=== PATIENT | male | born 1945 | race Caucasian/White ===

== ENCOUNTER → 2017-08-02 06:48 | Outpatient (CLI) | payer MEDICARE, BC, SELFPAY ==
--- NOTE | 2017-08-02 06:50 | NM_ITS ---
History and Indications: History of MS, hypertension, diabetes, tobacco use, family history. Procedure: Patient received 0.4 mg of Lexiscan, resting heart rate was 59 beats per, resting blood pressure 130/67, with Lexiscan maximum heart rate achieved was 74 bpm which is less than 85% of the maximum predicted heart rate and a blood pressure was 116/54. With Lexiscan patient complained of chest tightness and shortness of breath. Electrocardiogram: Resting electrocardiogram showed sinus rhythm nonspecific ST-T changes, with Lexiscan there is less than 1.[address] segment depression noted from the baseline EKG. The EKG portion of the Lexiscan Myoview is nondiagnostic. Cardiac stress and resting SPECT images: Cardiac stress and rest images were obtained using technetium 99 Myoview 10.9 mCi at rest and 32.7 mCi at stress, gated SPECT further analysis of segmental wall motion and calculation of the ejection fraction also done. Cardiac stress and rest images show a fixed defect involving the inferior, posterobasal, and anteroseptal wall consistent with area of prior myocardial scarring without significant rodri-infarct ischemia, computer derived ejection fraction is 50% with moderate hypokinesis involving the inferior, posterobasal and anteroseptal wall. Right ventricle is mildly enlarged with normal contractility. Conclusion: 1. The EKG portion of the Lexiscan Myoview is nondiagnostic. 2. Scintigraphic evidence of prior myocardial scarring involving the inferior, posterobasal and anteroseptal wall without significant rodri-infarct ischemia, computer derived ejection fraction is 50% segmental wall motion abnormality described above, right ventricle is mildly enlarged with normal contractility. 3. Abnormal Lexiscan Myoview study.
--- NOTE | 2017-08-02 06:52 | CI_ITS ---
Cerebrovascular Exam Indications: 433.10 Occlusion/stenosis of carotid artery without cerebral infarction. IMPRESSIONS 1. The bilateral vertebral arteries are patent with normal antegrade flow. 2. Study suggests 100% stenosis involving the right internal carotid artery. 3. Study suggests 50-69%(upper end of scale)stenosis involving the left internal carotid artery. No change from the study of 20-Apr-2014. Elevated velocities bilateral ECAs History: Coronary artery disease. Risk factors: Current tobacco use. Hypertension. Diabetes mellitus. Hyperlipidemia. Carotid duplex study. Complete study and Doppler flow study including spectral analysis, color and cleaning scale imaging. Height: Height: 195.6cm. Height: 77in. Weight: Weight: 96.2kg. Weight: 211.6lb. Body mass index: BMI: 25.1kg/m^2. Body surface area: BSA: 2.29m^2. Location: Vascular laboratory. Patient status: Outpatient. Tables: Arterial flow: + +--------+--------+ Location V sys V ed + +--------+--------+ Right CCA - proximal 41.6cm/s 9.4cm/s + +--------+--------+ Right CCA - distal 54.2cm/s 12.6cm/s + +--------+--------+ Right ECA 303cm/s -------- + +--------+--------+ Right vertebral 59.7cm/s -------- + +--------+--------+ Left CCA - proximal 148cm/s 37.7cm/s + +--------+--------+ Left CCA - distal 108cm/s 26.7cm/s + +--------+--------+ Left ECA 414cm/s -------- + +--------+--------+ Left ICA - proximal 234cm/s 61.7cm/s + +--------+--------+ Left ICA - mid 240cm/s 57.5cm/s + +--------+--------+ Left ICA - distal 136cm/s 30.9cm/s + +--------+--------+ Left vertebral 109cm/s -------- + +--------+--------+ Velocity ratios: + + + + Left, V sys Left, V ed + + + + Max ICA/dist CCA 2.22 2.31 + + + + (Report amended ) Electronically signed by: Kirit Woodson [id number]
--- NOTE | 2017-08-02 07:30 | CA_ITS ---
PROCEDURE: 2-D M-mode and color Doppler study INDICATIONS FOR THE TEST: Chest pain COPD Heart Murmur Tobacco SmokingX Palpitations Fatigue Syncope Edema HypertensionXDiabetes MellitusX Rheumatic Fever SOB HENRY Obesity HyperlipidemiaX Family History HD Additional History CAD PATIENT INFORMATION HEIGHT: 77 WEIGHT:212 GENDER: Male B/P:132/67 2-D/M-MODE INTERPRETATION: 2-D MEASUREMENTS OBSERVED VALUES IN CMS Right Ventricular Dimension (RVDd) 3.3 Interventricular Septum (Thickness)(IVsd) 1.2 Left Ventricular Internal Dimensions(LVIDd) 3.3 Left Ventricular Posterior Wall (Thickness)(LVPWd) 1.0 Aortic Root 3.6 Aortic Cusp Separation 1.8 Left Atrial Dimensions (LAD) 3.4 2D 1. Left atrium is qualitatively mildly enlarged, left ventricle is normal size, there is mild concentric left ventricular hypertrophy, visually estimated ejection fraction 55% with no obvious regional wall motion abnormality. 2. The right atrium is normal size, right ventricle is mildly enlarged with normal contractility. 3. The aortic valve is minimally thickened and calcified, leaflet continue to display mobility. 4. The mitral and tricuspid valve leaflets are minimally thickened. 5. The pulmonic valve is poorly visualized. 6. No significant pericardial effusion noted. DOPPLER INTERROGATION: Doppler interrogation of the aortic, mitral and tricuspid valvular presence of mild mitral and tricuspid regurgitation, tricuspid and jet velocity insufficient for calculation of the right ventricular systolic pressure, grade 1 diastolic dysfunction seen with tissue Doppler evidence of raised left atrial pressure. CONCLUSION: 1. Mildly enlarged left atrium, normal left ventricular size, mild concentric left ventricular hypertrophy, visually estimated ejection fraction 55% with no obvious regional wall motion abnormality, grade 1 diastolic dysfunction seen with tissue Doppler evidence of raised left atrial pressure. 2. Mild mitral and tricuspid regurgitation 3. No significant pericardial effusion noted.
== END ==
PROVIDERS: PCP Family Medicine; Visit Provider Internal Medicine
DX: Z85.9 Personal history of malignant neoplasm, unspecified; I10 Essential (primary) hypertension; E11.9 Type 2 diabetes mellitus without complications; E78.5 Hyperlipidemia, unspecified; I25.10 Atherosclerotic heart disease of native coronary artery without angina pectoris; I65.23 Occlusion and stenosis of bilateral carotid arteries; I65.29 Occlusion and stenosis of unspecified carotid artery
CPT/HCPCS: 78452; 93017; 93306; 93880; A9502; J2785

== ENCOUNTER → 2017-08-10 09:12 | Outpatient (CLI) | payer MEDICARE, BC, SELFPAY ==
[2017-08-10 09:54] LABS: Alanine Aminotransferase 22 U/L (12-78); Alkaline Phosphatase 79 U/L (46-116); Anion Gap 9.6 mEq/L (5-15); Aspartate Amino Transferase 13 U/L (15-37); Bilirubin,Direct 0.2 mg/dL (0.0-0.2); Bilirubin,Total 0.8 mg/dL (0.2-1.0); Blood Urea Nitrogen 30 mg/dL (7-18); Carbon Dioxide 31 mmol/L (21.0-32.0); Chloride 100 mmol/L (98-107); Cholesterol 164 mg/dL (140-200); Creatinine,Serum 0.94 mg/dL (0.70-1.30); Estimated Glomerular Filt Rate 79 ml/min (>60); GFR (African American) 95 ML/MIN (>60); Glucose 123 mg/dL (74-106); HDL Cholesterol 84 mg/dL (27-67); LDL Cholesterol 71 mg/dL (0-130); Potassium 4.6 mmoL/L (3.5-5.1); Sodium 136 mmol/L (136-145); Total Protein,Serum 8.2 gm/dL (6.4-8.2); Triglycerides 46 mg/dL (30-200); VLDL Cholesterol 9 mg/dL (0-40)
== END ==
PROVIDERS: Visit Provider Internal Medicine Cardiovascular Disease
DX: I10 Essential (primary) hypertension (principal)
CPT/HCPCS: 36415; 80048; 80061; 80076

== ENCOUNTER 2017-08-20 07:48 | Day surgery (SDC) | payer MEDICARE, BC, SELFPAY ==
[2017-08-20] VITALS (15 sets, daily range): BP systolic 142–168; BP diastolic 67–88; PULSE 54–65; RESP 18–20; TEMP 36.6; O2SAT 95–99; BMI 24.7
--- NOTE | 2017-08-20 | IR_ITS ---
CARDIAC CATHETERIZATION DATE OF CATHETERIZATION:08/20/2017 9:03 AM PROCEDURES: 1. Left heart catheterization 2. Left ventriculogram 3. Selective coronary angiogram 4. Drug-eluting stent deployment to the proximal LAD INDICATION FOR TEST: 1. Abnormal high risk Myoview 2. Coronary artery disease Informed consent was obtained prior to the procedure. COMPLICATIONS: None ESTIMATED BLOOD LOSS: Less than 10 ml. TECHNIQUE: One percent lidocaine used to anesthetize the right anterior aspect of the wrist. The right radial artery was accessed via the Seldinger technique. A 6 Serbian sheath was placed in the right radial artery. 2.5 mg of verapamil, 800 mcg of nitroglycerin and 5000 U Heparin were given through the arterial sheath. The trap catheter was also used to perform left heart catheterization left ventriculogram and selective coronary angiogram. At the end of the diagnostic angiogram and additional 5000 units of heparin was administered intravenously giving an ACT of 296 seconds. Brilinta 180 mg was given orally while patient was on the Dental Technician Apprentice table. An [employer] left guide catheter was used cannulate the left main artery and a choice PT wire was placed distally. I was unable to primary stent with a 3 mm stent and I was also unable to pass a 3 mm noncompliant balloon. A 1.5 mm balloon was placed at the stenotic area and deployed at 20 nadine however the balloon ruptured at 20 nadine. Following this stenting could still not be performed. A 2.5 x 10 mm compliant balloon was then deployed at 20 nadine to reduce the stenosis. This allowed a 3 mm x 12 mm resolute Eduardo stent to be deployed at 22 nadine in the proximal LAD reducing the calcified severe stenosis to less than 10%. CASSIE-3 flow was present before and after the procedure. An additional 2000 units of heparin was administered intravenously. At the end of the procedure the sheath was removed good hemostasis was achieved using TR banding patient was transferred to the postop holding area in stable condition ANGIOGRAPHIC RESULTS: 1. The left main artery normal 2. The left anterior descending artery has proximal calcified 20% stenoses followed by a very eccentric calcified 80-90% fingerlike projection immediately proximal to the first septal associate account manager. This stent is placed after the first diagonal artery which has 60-70% concentric in-stent restenosis. The large first diagonal artery is proximally patent and has a mid vessel 40% stenosis 3. The circumflex artery is a nondominant vessel and has proximal 30-40% stenoses and long 30-40% stenoses in the large second obtuse marginal artery. 4. The right coronary artery is a dominant vessel and has proximal 40% stenoses and mid vessel calcified mostly eccentric 50% stenosis with distal 50% stenoses and 70% stenosis in the proximal posterior descending artery 5. The GARCIA ventriculogram reveals normal 65% 6. The left ventricular end-diastolic pressure 10 to 15 mmHg IMPRESSION: 1. Coronary artery disease as described above 2. Successful stenting of a calcified complex proximal LAD stenosis severe disease reduced to less than 10% with 1 drug-eluting stent 3. Persistent moderate to severe disease in the mid LAD 4. Persistent moderate disease in the mid dominant right coronary artery and moderate to severe disease in the distal right coronary artery extending into the large posterior descending artery 5. Normal ejection fraction 6. Normal to mildly elevated LVEDP PLAN: 1. Brilinta and aspirin 2. LDL less than 55 3. Avoidance of tobacco products 4. Risk factor modification 5. Medical management for the time being. If patient continues to have angina recalcitrant to medical management week and consider stenting the distal right coronary artery as well as the mid
[2017-08-20 08:22] LABS: Basophils # 0.1 K/mm3 (0-0.2); Basophils % 0.6 % (0.1-2.0); Eosinophils # 0.5 K/mm3 (0.0-0.4); Eosinophils % 5.2 % (0.1-12.0); Hematocrit 43.8 % (42.0-52.0); Hemoglobin 14.2 g/dL (14.1-18.0); Lymphocytes # 1.6 K/mm3 (0.7-4.5); Lymphocytes % 17.2 K/mm3 (10-50); Mean Corpuscular HGB Conc 32.3 g/dL (31.8-35.4); Mean Corpuscular Volume 95.9 fl (80-94); Mean Platelet Volume 8.3 fl (7.4-10.4); Monocytes # 0.5 K/mm3 (0.1-1.0); Monocytes % 5.5 % (1.7-9.3); Neutrophils # 6.5 K/mm3 (1.8-7.8); Neutrophils % 71.5 % (37.0-80.0); Platelet Count 275 K/mm3 (142-424); Red Blood Count 4.57 M/mm3 (4.60-6.20); Red Cell Distribution Width 12.6 % (11.5-17.5)
[2017-08-20 08:26] LABS: Anion Gap 7.8 mEq/L (5-15); Blood Urea Nitrogen 17 mg/dL (7-18); Carbon Dioxide 34 mmol/L (21.0-32.0); Chloride 99 mmol/L (98-107); Creatinine Clearance Estimated 88 mL/min (0-300); Creatinine,Serum 0.85 mg/dL (0.70-1.30); Estimated Glomerular Filt Rate 88 ml/min (>60); GFR (African American) 107 ML/MIN (>60); Glucose 140 mg/dL (74-106); Potassium 3.8 mmoL/L (3.5-5.1); Sodium 137 mmol/L (136-145)
[2017-08-20 10:21] LABS: CATHL Activated Clotting Time 291 SEC (74-125)
[2017-08-20 10:22] LABS: CATHL Activated Clotting Time > 400 SEC (74-125)
[2017-09-18 08:43] LABS: CATHL Activated Clotting Time 65 SEC (74-125)
== END 2017-08-20 14:08 | disposition home or self-care (01) ==
PROVIDERS: PCP Family Medicine; Visit Provider Internal Medicine
DX: I25.10 Atherosclerotic heart disease of native coronary artery without angina pectoris (principal); R94.31 Abnormal electrocardiogram [ECG] [EKG]; R94.39 Abnormal result of other cardiovascular function study; R53.83 Other fatigue; E11.9 Type 2 diabetes mellitus without complications
CPT/HCPCS: 80048; 85025; 85347; 92928; 93458; 99152; 99153; C1725; C1769; C1876; C9600; J1644; Q9967

== ENCOUNTER → 2019-02-25 10:33 | Outpatient (CLI) | payer MEDICARE, BC, SELFPAY ==
--- NOTE | 2019-02-25 10:35 | CA_ITS ---
APPROVED REPORT Merchandising Specialist: JOSÉ MIGUEL Laterality: Bilateral Study Quality: Good Indications: dizziness, Carotid stenosis,SANDRA OCCLUSION X 10 YEARS Risk Factors Hypertension: Smoking Doppler Spectral Velocity Analysis ECA (R) 304.00/16.80 cm/s ECA (L) 345.00/42.30 cm/s dCCA (R) 47.10/7.07 cm/s dICA (L) 110.00/35.40 cm/s pCCA (R) 72.30/9.43 cm/s Reji (L) 213.00/68.50 cm/s pICA (L) 209.00/45.20 cm/s Vert (R) 90.80/25.90 cm/s dCCA (L) 106.00/33.40 cm/s pCCA (L) 187.00/41.30 cm/s Vert (L) 135.00/29.70 cm/s ICA/CCA 2.00 Findings Study suggests 100% occlusion invoving the right internal carotid artery unchanged from 08/02/17 study. Study suggests 50-69% stenosis (upper end of scale) involving the left internal carotid artery unchanged from 08/02/17 study. Antegrade flow seen bilateral vertebral arteries. Elevated velocities seen bilateral external carotid arteries. Conclusion Study suggests 100% occlusion invoving the right internal carotid artery unchanged from 08/02/17 study. Study suggests 50-69% stenosis (upper end of scale) involving the left internal carotid artery unchanged from 08/02/17 study. Antegrade flow seen bilateral vertebral arteries. Elevated velocities seen bilateral external carotid arteries. Electronically signed by : Kirit Woodson MD 02/26/2019 19:59:38
== END ==
PROVIDERS: PCP Family Medicine; Visit Provider Internal Medicine Cardiovascular Disease
DX: E78.5 Hyperlipidemia, unspecified (principal); I10 Essential (primary) hypertension; I25.10 Atherosclerotic heart disease of native coronary artery without angina pectoris; R42 Dizziness and giddiness; R94.31 Abnormal electrocardiogram [ECG] [EKG]; Z95.5 Presence of coronary angioplasty implant and graft; I65.23 Occlusion and stenosis of bilateral carotid arteries
CPT/HCPCS: 93880

== ENCOUNTER 2022-07-27 02:20 | Observation (INO) | payer MEDICARE, BC, SELFPAY ==
[2022-07-27] VITALS (26 sets, daily range): BP systolic 90–137; BP diastolic 43–77; PULSE 61–82; RESP 16–20; TEMP 36.3–37; O2SAT 95–100; BMI 18.2; BMI 18.1
--- NOTE | 2022-07-27 02:40 | PC.NURSE ---
Pt arrived to floor via stretcher @ 3104.
--- NOTE | 2022-07-27 03:51 | EXP.HP ---
History of Present Illness *Admission Date: 07/27/22 *Reason for visit:: Chest Pain *History of present illness: Mr. Berger is a 77-year-old male who transferred from [facility] due to NSTEMI. Per records reviewed the patient had a complaint of chest pain at his NH today. Upon arrival to the facility EMS found the patient's oxygen saturation at 85% on room air. In the ER at the [facility], EKG showed NSR with a RBBB, high sensitivity Troponin was elevated at 2600. BNP was elevated at 1050 and BNP was elevated at 1540. The patient underwent a CTA of the chest that showed LLL mucus plugging and recommended bronchoscopy for evaluation. The ER Physician at the [facility] the patient received Lovenox at 1mg/kg, Pantoprazole, Famotidine, Ceftriaxone and Cefepime. The patient will be admitted with initial impression: NSTEMI and Mucus Plugging. Cardiology and Pulmonary will be consulted to see the patient. [facility] Disclaimer: The information contained in this section may have been updated after the patient was seen, as this information can be updated by other users. Medical History Abnormal EKG CAD (coronary artery disease) Dizziness HLD (hyperlipidemia) HTN (hypertension) Social History Smoking Status: Current every day smoker tobacco type: cigarettes packs per day: 1 second hand exposure: Yes alcohol intake: never substance use type: denies use current occupational status: retired Travel in the last 8 weeks: Inside the [place] household members: spouse housing: house caffeine: Yes Review of Systems Review of Systems Review of systems:: pertinent systems reviewed and negative unless documented below Constitutional Constitutional: Reports system reviewed and no additional complaints, except as documented Eyes Eyes: Reports system reviewed and no additional complaints, except as documented ENT Ears, Nose, Mouth, and Throat: Reports system reviewed and no additional complaints, except as documented *Cardiovascular Cardiovascular: Reports chest pain *Respiratory Respiratory: Reports system reviewed and no additional complaints, except as documented *Gastrointestinal Gastrointestinal: Reports system reviewed and no additional complaints, except as documented *Genitourinary Genitourinary: Reports system reviewed and no additional complaints, except as documented *Musculoskeletal Musculoskeletal: Reports system reviewed and no additional complaints, except as documented Integumentary/Breasts Skin/Breast: Reports system reviewed and no additional complaints, except as documented *Neurologic Neurologic: Reports system reviewed and no additional complaints, except as documented Psychiatric Psychiatric: Reports system reviewed and no additional complaints, except as documented Endocrine Endocrine: Reports system reviewed and no additional complaints, except as documented Hematologic/Lymphatic Hematologic/Lymphatic: Reports system reviewed and no additional complaints, except as documented Allergic/Immunologic Allergic/Immunologic: Reports system reviewed and no additional complaints, except as documented Meds Home Medications and Allergies Home Medications Medication Instructions Recorded Confirmed Type meloxicam 15 mg tablet 15 mg PO ONCE 07/26/17 11/30/21 History aspirin 81 mg tablet,delayed 325 mg PO DAILY 02/21/19 11/30/21 History release (Adult Low Dose Aspirin) levothyroxine 50 mcg tablet 50 mcg PO DAILY 02/21/19 11/30/21 History (Synthroid) amlodipine 5 mg tablet 5 mg PO DAILY 11/30/21 11/30/21 History lisinopril 20 mg tablet 10 mg PO DAILY 11/30/21 11/30/21 History simvastatin 40 mg tablet 40 mg PO DAILY 11/30/21 11/30/21 History New Prescriptions to Start Prescriptions: Allergies Allergy/AdvReac Type Severity Reaction Status Date / Time From N
--- NOTE | 2022-07-27 03:53 | XR_ITS ---
PROCEDURE INFORMATION: Exam: XR Chest Exam date and time: 07/27/2022 5:43 AM Age: 77 years old Clinical indication: Sternal or substernal pain; Additional info: Chest pain TECHNIQUE: Imaging protocol: Radiologic exam of the chest. Views: 1 view. COMPARISON: No relevant prior studies available. FINDINGS: Lungs: Left mid and lower lung field pulmonary opacities with indistinctness of left hemidiaphragm and left lateral costophrenic sulcus. Possible bilateral upper lung field opacities as well. Pleural spaces: Unremarkable. No pleural effusion. No pneumothorax. Heart/Mediastinum: Cardiac silhouette not enlarged. Vasculature: Aortic arch calcification. Bones/joints: Dystrophic right shoulder. Bony demineralization. Thoracic spine degenerative changes. Other findings: Patient is slightly levo rotated. IMPRESSION: Left mid and lower lung field airspace opacities and perhaps bilateral apical opacities as well. Concern for pneumonia or other etiology. Left pleural fluid possible.
--- NOTE | 2022-07-27 03:54 | CA_ITS ---
APPROVED REPORT EXAM: Comprehensive 2D, Doppler, and color-flow Echocardiogram Supervisor Braiding: Taya Dumont, RCS, RVS Ht: 6 ft 5 in Wt: 157lbs BSA: 2.02 BP: 120/57 mmHg Indications: stemi, CHF, CAD, ABN EKG, DM, Exsmoker 2D Dimensions IVSd 1.18 cm LVEF (Visual) 40.00 % PWd 1.30 cm LA Volume 58.10 mL LVDd 4.96 cm LA Volume Index 28.80 mL/m2 (M/F) 16-34 LVDs 4.07 cm Aortic Root 3.29 cm Left Atrium 3.70 cm LVOT 2.08 cm (M/F) 1.5-2.5 M-Mode Dimensions LA Diam 3.12 cm (1.9-4.0) LVDd 6.24 cm (3.5-5.7) Ao Diam 3.66 cm (2.0-3.7) LVDs 4.79 cm (3.5-5.7) EF (Teich) 45.70% EPSs 1.13 cm FS 23.20% EDV (Teich) 196.90 mL TAPSE 2.68 (<1.7) ESV (Teich) 107.00 mL LV Diastology E Decel Time 237.00 (160-240 msec) E/A Ratio 0.69 MED E' 4.30 (< 7 cm/sec) MED A' 13.40 cm/s E'/MED E' Ratio 14.35 (>14) LAT E' 5.90 (<10 cm/sec) LAT A' 12.40 cm/s E/LAT E' Ratio 10.46 (>14) Aortic Valve LVOT Max 77.00 (70-110 cm/s) LVOT VTI 17.87 cm AoV Peak Corbin. 190.00 (50-130 cm/s) AO Peak GR. 14.40 mmHg AO Mean GR. 7.00 (<5 mmHg) AO VTI 39.99 (18-25 cm) ROBIN (VTI) 1.52 (2.5-4.5 cm2) Mitral Valve MV A Velocity 89.00 (40-130 cm/s) E/A Ratio 0.69 MV Decel. Time 237.00 (160-240 ms) MV PHT 70.00 ms Pulmonary Valve PV Peak Velocity 74.00 (50-150 cm/s) SD End VMAX 57.00 cm/s Tricuspid Valve TR P. Velocity 201.00 cm/s RAP Estimate 10.00 mmHg RVSP 26.10 mmHg Left Ventricle Left atrium is mildly enlarged ventricular normal size mild concentric left ventricular hypertrophy, estimated ejection fraction 50%, there is mild hypokinesis involving the mid to distal septum and apical wall. Grade 1 diastolic dysfunction seen without tissue Doppler evidence of raise left atrial pressure. Right Ventricle Right atrium and right ventricular normal size and contractility. Aortic Valve Aortic valve is thickened and calcified without Doppler evidence of aortic stenosis or aortic insufficiency. Mitral Valve Mitral valve has mild mitral annular calcification. There is no mitral stenosis, there is trace mitral regurgitation. Tricuspid Valve Tricuspid valve grossly normal, there is trace tricuspid regurgitation, tricuspid regurgitation (inadequate for calculation of the right ventricular systolic pressure. Pulmonic Valve Pulmonic valve is poorly visualized. Great Vessels Aortic root is normal size. Inferior vena cava is poorly visualized. Pericardium No significant pericardial effusion noted. Conclusion 1. Mildly large left atrium, normal left ventricular size, mild concentric left ventricular hypertrophy, estimated ejection fraction 50% with segmental wall motion abnormality described above, grade 1 diastolic dysfunction seen without tissue Doppler evidence of raised left atrial pressure. 2. Thickened and calcified aortic valve without any significant aortic stenosis or aortic insufficiency. 3. Trace mitral and tricuspid regurgitation. 4. No significant pericardial effusion noted. 5. Inferior vena cava is poorly visualized. Electronically signed by : Ti Peterson MD 07/28/2022 16:50:47
--- NOTE | 2022-07-27 05:39 | PC.NURSE ---
spoke with pharmacy for vanc dose
[2022-07-27 06:17] LABS: Chloride 102 mmol/L (98-107); Potassium 3.2 mmoL/L (3.5-5.1); Sodium 143 mmol/L (136-145)
[2022-07-27 06:20] LABS: Alanine Aminotransferase 22 U/L (12-78); Albumin Level 3.2 g/dl (3.5-5.0); Albumin/Globulin Ratio 0.9 (1.1-1.8); Alkaline Phosphatase 102 U/L (38-126); Anion Gap 7.2 mEq/L (5-15); Aspartate Amino Transferase 43 U/L (17-59); Bilirubin,Total 0.6 mg/dl (0.2-1.3); Blood Urea Nitrogen 32 mg/dl (9-20); Carbon Dioxide 37 mmol/L (22.0-30.0); Creatinine Clearance Estimated 60 mL/min (50-200); Estimated Glomerular Filt Rate 208 ml/min (>60); GFR (African American) 252 ML/MIN (>60); Globulin 3.7 g/dL (1.3-3.2); Total Protein,Serum 6.9 g/dl (6.3-8.2)
--- NOTE | 2022-07-27 06:20 | ECG_ITS ---
APPROVED REPORT Exam: Resting ECG HR:73 bpm ECG Measurements Heart Rate 73 AXES OH 201 P 82 QRSd 114 QRS -56 QT 405 T -34 QTc 430 Conclusion SINUS RHYTHM LEFT ANTERIOR FASCICULAR BLOCK [QRS AXIS <= -45, QR IN I, RS IN II] POSSIBLE ANTERIOR MYOCARDIAL INFARCTION , PROBABLY OLD [30 ms Q WAVE IN V3/V4, OR R < 0.2 mV IN V4] POSSIBLE INFERIOR MYOCARDIAL INFARCTION , OF INDETERMINATE AGE [30 ms Q WAVE IN II/aVF] ABNORMAL ECG UNCONFIRMED REPORT Electronically signed by : Bj Mckeon MD 07/27/2022 17:30:20
[2022-07-27 06:21] LABS: Calcium 8.7 mg/dl (8.4-10.2); Glucose 171 mg/dl (74-100)
[2022-07-27 06:24] LABS: Basophils # 0.1 K/mm3 (0-0.2); Basophils % 0.2 % (0.1-2.0); Eosinophils # 0.1 K/mm3 (0.0-0.4); Eosinophils % 0.4 % (0.1-12.0); Hematocrit 35.5 % (42.0-52.0); Hemoglobin 10.7 g/dL (14.1-18.0); Lymphocytes # 0.8 K/mm3 (0.7-4.5); Lymphocytes % 3.9 % (10-50); Mean Corpuscular HGB Conc 30.1 g/dL (31.8-35.4); Mean Corpuscular Hemoglobin 28.8 pg (27.0-31.2); Mean Corpuscular Volume 95.7 fl (80-94); Mean Platelet Volume 10.6 fl (7.4-10.4); Monocytes % 4.8 % (1.7-9.3); Neutrophils # 18.8 K/mm3 (1.8-7.8); Neutrophils % 90.6 % (37.0-80.0); Platelet Count 449 K/mm3 (142-424); Red Cell Distribution Width 18.8 % (11.5-17.5); White Blood Count 20.7 K/mm3 (4.8-10.8)
[2022-07-27 06:33] LABS: MANUAL DIFFERENTIAL MANUAL DIFFERENTIAL (MANUAL DIFF)
[2022-07-27 06:45] LABS: Lymphocytes % 6 % (10-50); Monocytes % 3 % (2-9); Neutrophils % 91 % (42-76); Total Cells Counted 100
[2022-07-27 06:46] LABS: Anisocytosis 1+; Hypochromasia 1+; Platelet Estimate Normal
[2022-07-27 06:47] LABS: Troponin I 3.24 ng/ml (0.00-0.034)
--- NOTE | 2022-07-27 06:52 | PC.NURSE ---
reported critical troponin 3.[address] Martinez
[2022-07-27 07:02] LABS: Chol/HDL Ratio 2.5 (1-3.5); Cholesterol 79 mg/dl (140-200); HDL Cholesterol 32 mg/dl (40-60); Triglycerides 74 mg/dl (30-150); VLDL Cholesterol 15 mg/dL (0-40)
[2022-07-27 07:11] LABS: Procalcitonin 0.205 ng/mL (0.0-2.0)
[2022-07-27 07:27] LABS: Direct LDL Cholesterol < 30.00 mg/dL (100-129)
--- NOTE | 2022-07-27 08:19 | EXP.PN ---
Subjective *Date: 07/27/22 *Time: 19:34 Interval history: Date of service July 27, 2022 The patient is accompanied by his and daughter who are at bedside. Nursing staff report that he remains afebrile with stable vital signs and saturating appropriately on 2 L of oxygen via nasal cannula. They report that he is on no home O2. We have reviewed and discussed his laboratory evaluation. I have personally interpreted stated his labs including a CBC that identifies a white blood cell count of 21,000, hemoglobin of 10.7, platelet count 449. His sodium is 143 and his potassium is 3.2. His BUN is 32 and his creatinine is 0.4. His glucose remains under 180. His troponin trend is downward. His procalcitonin is normal. Exam Data for Last 24 hours Vital signs and Labs for Last 24 Hours: Temp Pulse Resp BP Pulse Ox 98.1 F 66 16 110/54 L 100 07/27/22 07:25 07/27/22 07:25 07/27/22 07:25 07/27/22 07:25 07/27/22 07:25 Laboratory Results - last 24 hr 07/27/22 05:44: WBC 20.7 H*, RBC 3.70 L, Hgb 10.7 L, Hct 35.5 L, MCV 95.7 H, MCH 28.8, MCHC 30.1 L, RDW 18.8 H, Plt Count 449 H, MPV 10.6 H, Neut % (Auto) 90.6 H, Lymph % (Auto) 3.9 L, [place] % (Auto) 4.8, Eos % (Auto) 0.4, Baso % (Auto) 0.2, Neut # (Auto) 18.8 H, Lymph # (Auto) 0.8, [place] # (Auto) 1.0, Eos # (Auto) 0.1, Baso # (Auto) 0.1, Total Counted 100, Neutrophils % (Manual) 91 H, Lymphocytes % (Manual) 6 L, Monocytes % (Manual) 3, Platelet Estimate Normal, Hypochromasia 1+, Anisocytosis 1+ 07/27/22 05:44: Sodium 143, Potassium 3.2 L, Chloride 102, Carbon Dioxide 37 H, Anion Gap 7.2, BUN 32 H, Creatinine 0.40 L, Estimated Creat Clear 60, Estimated GFR 208, Est GFR ( Amer) 252, Glucose 171 H, Calcium 8.7, Total Bilirubin 0.6, AST 43, ALT 22, Alkaline Phosphatase 102, Troponin I 3.24 H, Total Protein 6.9, Albumin 3.2 L, Globulin 3.7 H, Albumin/Globulin Ratio 0.9 L 07/27/22 05:44: Triglycerides 74, Cholesterol 79 L, LDL Cholesterol Direct < 30.00 L, VLDL Cholesterol 15, HDL Cholesterol 32 L, Cholesterol/HDL Ratio 2.5 07/27/22 05:44: Procalcitonin 0.205 07/27/22 05:44: Free T4 1.00 I & O for Last 24 hours: Intake & Output 07/24/22 07/25/22 07/26/22 07/27/22 23:59 23:59 23:59 23:59 Intake Total 0 / 0 Output Total 100 / 100 Balance -100 / -100 Weight 69.853 kg Constitutional Constitutional: no acute distress, cachectic, chronically ill appearing, cooperative and somnolent *Routine HEENT Exam Head: Present normocephalic Eye: Present EOMI and PERRL ENT: Present mucous membranes moist Comments: Left facial deformity and scarring noted *Routine Neck Exam Neck: Present supple; Absent lymphadenopathy Comments: Left neck deformity and radiation changes *Routine Respiratory Exam Respiratory: Present rhonchi, normal respiratory effort and symmetric chest movement *Routine Cardiovascular Exam Cardiovascular: Present RRR *Routine Abdominal Exam Abdominal: Present soft and normoactive bowel sounds; Absent tenderness Comments: PEG tube *Routine Extremities Exam Extremities: Absent cyanosis, clubbing or edema Comments: Diminished muscle mass throughout *Routine Skin Exam Skin: Present warm; Absent rash Comments: DTI stage II sacrum *Routine Neurological Exam Neurological: Present alert, oriented X3, moving all extremities, vision grossly intact and hearing grossly intact Routine Psychiatric Exam Psychiatric: Present cooperative and depressed Assessment and Plan *Assessment and plan (1) NSTEMI (non-ST elevated myocardial infarction): Status: Acute Category: Medical Code(s): I21.4 - Non-ST elevation (NSTEMI) myocardial infarction (2) Mucus plugging of bronchi: Status: Acute Category: Medical Code(s): T17.500A - Unspecified foreign body in bronchus causing asphyxiation, initial encounter (3) Severe protein-calorie malnutrition: Status: Acute Category: Medical Code(s): E43 - Unspecified severe pr
[2022-07-27 08:31] LABS: Coronavirus 19, PCR Not Detected (NotDetected); Influenza A, PCR Not Detected (NotDetected); Influenza B, PCR Not Detected (NotDetected)
--- NOTE | 2022-07-27 09:20 | PC.NURSE ---
rangel catheter was present prior to arrival at [facility]
--- NOTE | 2022-07-27 09:26 | EXP.PULM.CON ---
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 [facility] Disclaimer: The information contained in this section may have been updated after the patient was seen, as this information can be updated by other users. Medical History (Updated 07/27/22 @ 10:53 by Kingston Edwards MD) Abnormal EKG Acute and chronic respiratory failure with hypoxia Aspiration pneumonia CAD (coronary artery disease) Dizziness HAP (hospital-acquired pneumonia) HLD (hyperlipidemia) HTN (hypertension) Recurrent pneumonia Social History Smoking Status: Current every day smoker tobacco type: cigarettes packs per day: 1 second hand exposure: Yes alcohol intake: never substance use type: denies use current occupational status: retired Travel in the last 8 weeks: Inside the [place] household members: spouse housing: house caffeine: Yes Review of Systems Constitutional Constitutional: Reports anorexia, Reports body ache(s) and Reports fatigue Eyes Eyes: Denies eye discharge, Denies dry eyes, Denies irritation and Denies itchy eyes ENT Ears, Nose, Mouth, and Throat: Denies epistaxis, Denies facial pain, Denies lip swelling and Denies throat swelling *Cardiovascular Cardiovascular: Reports dyspnea and Reports dyspnea on exertion *Respiratory Respiratory: Reports chest congestion, Reports cough, Reports dyspnea, Reports dyspnea on exertion, Reports excessive phlegm production and Denies hemoptysis *Gastrointestinal Gastrointestinal: Denies abdominal pain, Denies belching and Denies cramping *Musculoskeletal Musculoskeletal: Reports back pain, Reports myalgias and Reports other (No small joint swelling or Pain) *Neurologic Neurologic: Reports system reviewed and no additional complaints, except as documented Psychiatric Psychiatric: Denies homicidal ideation and Denies suicidal ideation Endocrine Endocrine: Reports fatigue and Denies heat intolerance Hematologic/Lymphatic Hematologic/Lymphatic: Denies easy bleeding and Denies lymphadenopathy Allergic/Immunologic Allergic/Immunologic: Denies itchy eyes, Denies lip swelling and Denies throat swelling Pulmonology Exam Inpatient Vital signs and Labs for Last 24 Hours: Temp Pulse Resp BP Pulse Ox 98.1 F 66 16 110/54 L 100 07/27/22 07:25 07/27/22 07:25 07/27/22 07:25 07/27/22 07:25 07/27/22 07:25 Laboratory Results - last 24 hr 07/27/22 05:44: WBC 20.7 H*, RBC 3.70 L, Hgb 10.7 L, Hct 35.5 L, MCV 95.7 H, MCH 28.8, MCHC 30.1 L, RDW 18.8 H, Plt Count 449 H, MPV 10.6 H, Neut % (Auto) 90.6 H, Lymph % (Auto) 3.9 L, [place] % (Auto) 4.8, Eos % (Auto) 0.4, Baso % (Auto) 0.2, Neut # (Auto) 18.8 H, Lymph # (Auto) 0.8, [place] # (Auto) 1.0, Eos # (Auto) 0.1, Baso # (Auto) 0.1, Total Counted 100, Neutrophils % (Manual) 91 H, Lymphocytes % (Manual) 6 L, Monocytes % (Manual) 3, Platelet Estimate Normal, Hypochromasia 1+, Anisocytosis 1+ 07/27/22 05:44: Sodium 143, Potassium 3.2 L, Chloride 102, Carbon Dioxide 37 H, Anion Gap 7.2, BUN 32 H, Creatinine 0.40 L, Estimated Creat Clear 60, Estimated GFR 208, Est GFR ( Amer) 252, Glucose 171 H, Calcium 8.7, Total Bilirubin 0.6, AST 43, ALT 22, Alkaline Phosphatase 102, Troponin I 3.24 H, Total Protein 6.9, Albumin 3.2 L, Globulin 3.7 H, Albumin/Globulin Ratio 0.9 L 07/27/22 05:44: Triglycerides 74, Cholesterol 79 L, LDL Cholesterol Direct < 30.00 L, VLDL Cholesterol 15, HDL Cholesterol 32 L, Cholesterol/HDL Ratio 2.5 07/27/22 05:44: Procalcitonin 0.205 07/27/22 05:44: Free T4 1.00 07/27/22 08:25: SARS-CoV-2 (PCR) Not detected, Influenza A Untype (PCR) Not detected, Influenza Type B (PCR) Not detected I & O for Labs for Last 24 Hours: Intake & Output 07/24/22 07/25/22 07/26/22
--- NOTE | 2022-07-27 09:30 | EXP.PHA.CONS ---
Pharmacy Consult Date: 07/27/22 Time: 09:30 Referring provider: DR. HOYOS Reason for Consult:: VANCOMYCIN DOSING Allergies Allergy/AdvReac Type Severity Reaction Status Date / Time From NEOSPORIN Allergy Mild I-RASH Uncoded 02/21/19 10:09 Home Medications Medication Instructions Recorded Confirmed Type meloxicam 15 mg tablet 15 mg PO ONCE 07/26/17 11/30/21 History aspirin 81 mg tablet,delayed 325 mg PO DAILY 02/21/19 11/30/21 History release (Adult Low Dose Aspirin) levothyroxine 50 mcg tablet 50 mcg PO DAILY 02/21/19 11/30/21 History (Synthroid) amlodipine 5 mg tablet 5 mg PO DAILY 11/30/21 11/30/21 History lisinopril 20 mg tablet 10 mg PO DAILY 11/30/21 11/30/21 History simvastatin 40 mg tablet 40 mg PO DAILY 11/30/21 11/30/21 History New Prescriptions to Start Prescriptions: Height: 1.96 m Weight: 69.853 kg Laboratory Results:: Laboratory Results - last 24 hr 07/27/22 05:44: WBC 20.7 H*, RBC 3.70 L, Hgb 10.7 L, Hct 35.5 L, MCV 95.7 H, MCH 28.8, MCHC 30.1 L, RDW 18.8 H, Plt Count 449 H, MPV 10.6 H, Neut % (Auto) 90.6 H, Lymph % (Auto) 3.9 L, [place] % (Auto) 4.8, Eos % (Auto) 0.4, Baso % (Auto) 0.2, Neut # (Auto) 18.8 H, Lymph # (Auto) 0.8, [place] # (Auto) 1.0, Eos # (Auto) 0.1, Baso # (Auto) 0.1, Total Counted 100, Neutrophils % (Manual) 91 H, Lymphocytes % (Manual) 6 L, Monocytes % (Manual) 3, Platelet Estimate Normal, Hypochromasia 1+, Anisocytosis 1+ 07/27/22 05:44: Sodium 143, Potassium 3.2 L, Chloride 102, Carbon Dioxide 37 H, Anion Gap 7.2, BUN 32 H, Creatinine 0.40 L, Estimated Creat Clear 60, Estimated GFR 208, Est GFR ( Amer) 252, Glucose 171 H, Calcium 8.7, Total Bilirubin 0.6, AST 43, ALT 22, Alkaline Phosphatase 102, Troponin I 3.24 H, Total Protein 6.9, Albumin 3.2 L, Globulin 3.7 H, Albumin/Globulin Ratio 0.9 L 07/27/22 05:44: Triglycerides 74, Cholesterol 79 L, LDL Cholesterol Direct < 30.00 L, VLDL Cholesterol 15, HDL Cholesterol 32 L, Cholesterol/HDL Ratio 2.5 07/27/22 05:44: Procalcitonin 0.205 07/27/22 05:44: Free T4 1.00 07/27/22 08:25: SARS-CoV-2 (PCR) Not detected, Influenza A Untype (PCR) Not detected, Influenza Type B (PCR) Not detected Medical History: Medical History (Updated 07/27/22 @ 04:09 by Chet Singh DNP) Abnormal EKG CAD (coronary artery disease) Dizziness HLD (hyperlipidemia) HTN (hypertension) Assessment and Plan Assessment and plan all Dx Assessment and Plan for all problems:: Pharmacokinetic dosing service Objective: Patient: Floor: Age: 77 yo Serum creatinine: 0.40 mg/dL Height: 77.2 Inches Weight (kg): 70 Assessment: IBW (kg): 89.56 Dosing wt(kg): 70 Estimated Creatinine clearance (ml/min): 130 Clearance limited to 130 ml/min to reduce risk of overdosing. CRCL method: Cockcroft and Gault using ibw(default). Drug selected: Vancomycin Loading dose (mg): Vd (liters): 52.5 (factor used: 0.75 L/kg) Reza (hr-1): 0.112 Half life (hrs): 6.19 CLvanco=?? 5.880 L/hr Recommended dose: 1500 mg Interval: 12 hrs Infusion time (hrs): 2.0 Predicted peak (mcg/mL): 34.6 Predicted trough (mcg/mL): 11.29 Total body weight is being used for vancomycin dosing. Recommendations: Give Vancomycin 1500 mg q 12 hrs with an expected Cpeak of 34.6 mcg/ml and an expected Ctrough of 11.29 mcg/ml AUC 0-24 /TIFFANY Data: TIFFANY 0.5 mcg/mL:?? AUC/TIFFANY:? 1020.4 TIFFANY 1.0 mcg/mL:?? AUC/TIFFANY:? 510.2 --------- TIFFANY 1.5 mcg/mL:?? AUC/TIFFANY:? 340.1 TIFFANY 2.0 mcg/mL:?? AUC/ITFFANY:? 255.1 Thank you for the consult, will continue to follow. -RULA SHANKSD
--- NOTE | 2022-07-27 09:54 | DIET.NUTRFU ---
Addendum entered by Yady Santamaria, ROHITH, LD 07/27/22 12:04: when appropriate start Nutren 2.0 at 20ml/hr increase to 45ml/hr to provide 1080ml/2160kcal (30kcal/kg)/91gm protein (1.3gm/kg) and 747.36ml formula water, flush with 225ml [id number] for total fluid of 2100ml (30ml/kg). will also recommend starting prostat AWC also to promote healing once daily via PEG to provide 17gm protein and Vitamin C and zinc Original Note: Spoke to nursing at [facility] and to clarify diet hx. According to [facility] due to failing swallow study. He received radiation to neck area due to CA in 2006 and reports it has declined since then. He does tolerate ice chips per her request. She reports he has a tendency to get very dry, when tried to wake him today his lips and mouth appear dry. Oral care will be beneficial often, nursing has ordered chapstick. TAPING SUPERVISOR is ordered to review his swallow during stay. Nursing from reported he was unable to tolerate Nystatin for thrush tx due to poor tongue control. also reports his jaw is not aligned correctly making it hard to chew. He was tolerating Nutren 1.5 at 55ml/hr, was increased to 60ml same day sent out. Assured her we would start at slow rate and increase as tolerated. He also has skin breakdown to coccyx, was taking bekah at [facility] with start prostat AWC when start TF. He is underweight lost 10kg since November, lost 2.2kg since PEG placed. He is bedridden at [facility] per admit note. Based on information he triggers for severe PCM. Plan is to have cardiac cath today, will start TF when medically appropriate.
--- NOTE | 2022-07-27 09:58 | P.CONPHA_ITS ---
Pharmacy Intervention Comments: Medication reconciliation completed using [facility]
[2022-07-27 10:37] LABS: ABG Base Excess 8.9 mmol/L (-2.4-2.3); ABG HCO3 32.4 mmhg (22.0-26.0); ABG Oxygen Saturation 91 % (90-100); ABG PCO2 44.6 mmhg (35.0-45.0); ABG PH 7.48 mmol/L (7.35-7.45); ABG TCO2 33.8 mmhg (23-27)
--- NOTE | 2022-07-27 10:37 | HMH.PTEV ---
Physical Therapy Evaluation Rehab PT IP Evaluation Start: 07/27/22 10:01 Freq: .once Status: Active Protocol: Document 07/27/22 10:33 SHELBY (Rec: 07/27/22 10:37 SHELBY [id number]) Subjective/History History History 77 yowm T/F to [facility] with NSTEMI and likely PNA. He was undergoing rehab at an outside facility prior to adm. He generally lives with his spouse at home and is independent with mobility, but has undergone a decline in health over the past 2 mos and now requires assistance with all activity. Subjective Subjective Pt c/o pain all over but agrees to sit at EOB. Rehab PT IP Eval Objective Appearance Patient Behavior Appropriate Patient Orientation Person,Time Difficulty following instructions none Speech Pattern Garbled Ambulation Patient Able to Ambulate No Balance Ability to Arise Able, uses arms to help Sitting Balance Steady, safe Dynamic Sitting Balance Ability Fair Transfers Bed Transfer Ability Moderate x 2 (50% assist) Rehab PT IP prob,goals,plan Problems Date of Evaluation: 07/27/22 PT IP Problems Bed Mobility,Transfers,Gait Rehab Potential Rehab Potential Good Plan PT Intervention Plan Bed Mobility,Transfers,Gait, Therapeutic Exercise PT Plan Frequency Daily Duration LOS Discharge Goals Bed Transfer Ability Moderate x 1 (50% assist) Sit to Stand Chair Transfer Ability Maximum x 1 (75% assist) Discharge Plan PT Discharge Plan Pt is currently most appropriate for return to rehab once medically stable for d/c. G -code Required No Eval Complexity Eval Charge Codes 90190 - Moderate Complexity PHYSICIAN CERTIFICATION: I certify the specified therapy services for Trevor Berger are required, authorized, and reviewed every 30 days.
[2022-07-27 10:43] LABS: Allen's Test Acceptable; Oxygen 1L NC %; Source Right Brachial
--- NOTE | 2022-07-27 10:53 | HMH.OTEV ---
OT Inpatient Evaluation Rehab OT IP Evaluation Start: 07/27/22 10:02 Freq: ONCE Status: Active Protocol: Document 07/27/22 10:44 PIO (Rec: 07/27/22 10:52 PIO [id number]) Rehab OT IP Assessment Subjective History Mr. Berger is a 77-year-old male who transferred from [facility] due to NSTEMI. Per records reviewed the patient had a complaint of chest pain at his NH today. Upon arrival to the facility EMS found the patient's oxygen saturation at 85% on room air . In the ER at the [facility], EKG showed NSR with a RBBB, high sensitivity Troponin was elevated at 2600. BNP was elevated at 1050 and BNP was elevated at 1540. The patient underwent a CTA of the chest that showed LLL mucus plugging and recommended bronchoscopy for evaluation. The ER Physician at the [facility] the patient received Lovenox at 1mg/kg, Pantoprazole, Famotidine, Ceftriaxone and Cefepime. The patient will be admitted with initial impression: NSTEMI and Mucus Plugging. Cardiology and Pulmonary will be consulted to see the patient. Patient is a resident at a LTC facility at this time. Patient requires Max A/TD for all ADLs. Patient requires Max A X2 for all bed mobility and transfers. Subjective I can't get up by myself. Instructed Patient on bed mobility task of proper hand and foot placement to complete supine->sit @ EOB requiring Max A x2. Patient able to sit @ EOB with fair+ dynamic sitting balance with SBA. Patient sat up @ EOB up to 2 mins prior t
[2022-07-27 10:55] LABS: Thyroid Stimulating Hormone 2.78 uIU/mL (0.465-4.68)
[2022-07-27 10:58] LABS: Troponin I 2.53 ng/ml (0.00-0.034)
--- NOTE | 2022-07-27 11:38 | CARE MANAGER ---
Patient is currently residing at [facility] and is skilled. Herrera states he will be ok to discharge back there when stable.
--- NOTE | 2022-07-27 12:23 | EXP.CARD.CON ---
History of Present Illness History of Present Illness Consult date: 07/27/22 Requesting physician: Neo Martinez Consult reason: chest pain Chief complaint: chest pain History of present illness: This is a 77-year-old white gentleman who was transferred here from [facility] due to a non-STEMI. The patient complained of chest pain at the senior care and was transported via EMS to [facility]. His oxygen saturations were 85% on room air. He did have a high-sensitivity troponin at 2600 at [facility]. His BNP was elevated at 1050 and a CTA of the chest showed left lower lobe mucous plugging and recommended a bronchoscopy. The patient was transferred here to [facility]. This morning he is still complaining of chest pain. He is unable to describe the chest pain. He states that it is severe at times. And that is really all of the information that he gives about his chest pain. He is able to answer most of my questions appropriately but is just very hard to understand him. His daughter is at bedside during my evaluation. The daughter reports that he was living at home taking care of himself prior to May 2022. She states in May he was admitted to the hospital for aspiration pneumonia. He does have a history of parotid cancer with radiation that has made it difficult for him to swallow for the last several years. She states he was admitted for aspiration pneumonia and at that time they were told he had a heart attack and then they were told he did not and then they were told he had a non-STEMI with an ejection fraction around 33%. She states he had no cardiac work-up at that time other than an echocardiogram. She states that following his hospital stay in May he was then transferred to [facility] and then stayed at [facility] which is like an assisted living and now he is living in a senior care. The patient appears to be very emaciated and does have a PEG tube in place secondary to his aspiration. The patient does have a known history of coronary artery disease with stenting last in 2018. [facility] Disclaimer: The information contained in this section may have been updated after the patient was seen, as this information can be updated by other users. Medical History (Updated 07/27/22 @ 10:53 by Kingston Edwards MD) Abnormal EKG Acute and chronic respiratory failure with hypoxia Aspiration pneumonia CAD (coronary artery disease) Dizziness HAP (hospital-acquired pneumonia) HLD (hyperlipidemia) HTN (hypertension) Recurrent pneumonia Social History Smoking Status: Current every day smoker tobacco type: cigarettes packs per day: 1 second hand exposure: Yes alcohol intake: never substance use type: denies use current occupational status: retired Travel in the last 8 weeks: [place] the [place] household members: spouse housing: house caffeine: Yes Review of Systems Review of Systems Review of systems:: pertinent systems reviewed and negative unless documented below Constitutional Constitutional: Reports system reviewed and no additional complaints, except as documented, Reports poor appetite, Reports lethargy and Reports weakness Eyes Eyes: Reports system reviewed and no additional complaints, except as documented ENT Ears, Nose, Mouth, and Throat: Reports system reviewed and no additional complaints, except as documented and Reports dysphagia *Cardiovascular Cardiovascular: Reports system reviewed and no additional complaints, except as documented, Reports chest pain, Reports chest pain at rest, Reports chest pain with activity and Reports dyspnea *Respiratory Respiratory: Reports system reviewed and no additional complaints, except as documented and Reports dyspnea *Gastrointestinal Gastrointestinal: Reports system reviewed and no additional complaints, except as documented and Repor
--- NOTE | 2022-07-27 13:33 | IR_ITS ---
APPROVED REPORT Patient Location: Inpatient Salvage Cutter: DUARTE Mauro RT (R) PROCEDURES Left heart catheterization Left ventriculogram Selective coronary angiogram INDICATION Acute non-ST elevation myocardial infarction, Known coronary artery disease SCAI INDICATION Clinical history: Extensive discussion and consideration was given prior to performing cardiac catheterization. Basically the daughter and the asked for all efforts to be performed in order to save this gentleman. Because of the elevated troponin I felt it was reasonable to perform diagnostic angiography and potentially percutaneously revascularized the vessel if the lesion was critical, amenable to intervention, and would provide substantive clinical improvement in the gentleman's situation. I agree to perform cardiac catheterization. Informed consent was obtained prior to the procedure. COMPLICATIONS None Estimated Blood Loss: Less than 10 mls TECHNIQUE One percent lidocaine was used to anesthetize the right groin. The right femoral artery was accessed via the Seldinger technique. A 4-Japanese sheath was placed in the right femoral artery. The JL-4 and JR-4 catheter was also used to perform left heart catheterization left ventriculogram and selective coronary angiogram. At the end of the procedure the patient was transferred to the post-op holding area in stable condition for arterial sheath removal. ANGIOGRAPHIC RESULTS The left main artery Has distal eccentric 40 to 50% calcified stenosis The left anterior descending artery Has an ostial calcified 60 to 70% stenosis with additional proximal 30 to 40% stenoses with calcified spherical lesions in the mid segment creating 50 to 60% stenosis with a focal mid vessel concentric 90% stenosis. The circumflex artery Is a nondominant yet still large vessel which is stent is present in the proximal ramus intermedius with minimal in-stent restenosis. The second obtuse marginal artery has a 90% mid vessel stenosis however the vessel is less than 2 mm in diameter The right coronary artery Is a dominant vessel and has an ostial 20 to 30% stenosis with a mid vessel eccentric 70% stenosis. Distally there is extensive 90% calcification immediately proximal to the PDA and PLV B. The PDA is then occluded in the midsegment. Posterior lateral branch is moderate and patent. The distal vessel collateralizes a large portion of the septum The GARCIA ventriculogram reveals Dilated ventricle adequate ejection fraction analysis cannot be performed The left ventricular end-diastolic pressure Less than 10 mmHg IMPRESSION Calcified extensive coronary artery disease as described above in which none of the lesions are appropriate for percutaneous intervention in the current clinical situation. None of the lesions are contributing significantly to the patient's clinical state PLAN 1. Continue medical management for coronary artery disease Electronically signed by : Дмитрий Wills MD 07/27/2022 14:28:20
--- NOTE | 2022-07-27 15:49 | PC.NURSE ---
clarified ordered with Dr Martinez, pt does not need further troponins drawn at this tiem. [id number]
--- NOTE | 2022-07-27 18:16 | HMH.SLDYSPHA ---
Speech & Language Evaluation Speech/Language Dysphagia Evaluation Start: 07/27/22 17:51 Freq: ONCE Status: Active Protocol: Document 07/27/22 17:51 KEON (Rec: 07/27/22 18:15 KEON [id number]) Dysphagia Assess/Goals/Plan Assessment Date of Evaluation: 07/27/22 Evaluation Type Initial Certification Assessment/Problems History of dysphagia, has PEG tube. Does Patient Qualify for Service Yes Qualify/Failure Comment Based on the clinical swallow evaluation, Mr. Berger is displaying overt s/sxs of aspiration. Given this and his history of aspiration, MECHANICAL MAINTENANCE ENGINEER would need to further assess via instrumental assessment to determine severity of swallow dysfunction at this time. MECHANICAL MAINTENANCE ENGINEER discussed this with pt, who expressed that he would prefer to continue tube feeds with ice chips and to not pursue further evaluation regarding dysphagia. Recommendations PHYSICIAN CERTIFICATION: The specified therapy services are required, authorized, and reviewed every 30 days. Diet Recommendations NPO with ice after agressive oral care, pt's baseline diet. SL Swallow Guidelines Ice OK after oral care Dysphagia Swallow Precautions/Strategies Sitting Upright (90 deg) Place Food on Right side of Mouth Plan Pt/Guardian verbally ack understanding Yes of dx/prognosis/goals Pt/Guardian verbally ack understanding Yes of/consent to tx prog G -code Required No Education Instructions provided MECHANICAL MAINTENANCE ENGINEER discussed the need to continue assessing via instrumental assessment to determine if he is safe for PO at this time. Pt expressed that he has a history of severe dysphagia and he would prefer to continue his tube feeds with ice chips after oral care. MECHANICAL MAINTENANCE ENGINEER discussed pt's wishes with nursing and MD, who expressed understanding. Pt/Caregiver able to recall information Able to recall/restate Reinforcement needed No Speech & Language HPI History Present Illness Description of Patient Problem Mr. Berger is a 77 y.o. male who transferred to [place]
--- NOTE | 2022-07-27 19:57 | PC.NURSE ---
pt alert x4, pt hard to understand at times. pt npo ice chips only, gtube in place feeding started, nutren 2.0 25ml/hr with 225ml flush q4hr. no issues at this time with that, pt at 45 degree angle laying in bed. pt to analytical lab technician today, vss since coming back to floor. cath site at rt groin dsg cdi, no concerns. 2l o2 via nc, pt has coughed a significant amount of mucus up, pt is able to suction himself. cb with pt, and personal items within reach as pt will feed himself ice chips. pt currently resting in bed. no concerns at this time.
[2022-07-27 22:54] LABS: Troponin I 1.33 ng/ml (0.00-0.034)
--- NOTE | 2022-07-27 22:57 | PC.NURSE ---
AT 2255 LAB RPORTS CRITCAL TROPONIN OF 1.33. AND WAS REPORTED TO CHRISTIAN FRANCO. TROPONINS ARE TRENDING DOWN.
[2022-07-28] VITALS (9 sets, daily range): BP systolic 88–98; BP diastolic 30–54; PULSE 67–80; RESP 16–20; TEMP 36.6–36.8; O2SAT 90–95; BMI 18.1
--- NOTE | 2022-07-28 04:52 | PC.NURSE ---
NUTREN INFUSING AT 30 ML/HR/PUMP TO PEG. 225 ML FREE WATER 02 AT 2LNC, 99% SATS NOTED. MEPILEX INTACT TO STAGE 2 DECUBITUS ON COCCYX. HOB ELEVATED 40 DEGREES. INCONTINENT B&B, WEARS BRIEFS. ORAL SUCTIONS SELF. SINUS RHYTHM/BBB ON TELE MONITOR. DENIES PAIN/SOA/DISCOMFORT.
[2022-07-28 07:29] LABS: Basophils # 0.1 K/mm3 (0-0.2); Basophils % 0.4 % (0.1-2.0); Eosinophils # 0.1 K/mm3 (0.0-0.4); Eosinophils % 0.6 % (0.1-12.0); Hematocrit 33.3 % (42.0-52.0); Hemoglobin 10.2 g/dL (14.1-18.0); Lymphocytes # 0.8 K/mm3 (0.7-4.5); Lymphocytes % 5.4 % (10-50); Mean Corpuscular HGB Conc 30.7 g/dL (31.8-35.4); Mean Corpuscular Hemoglobin 29.4 pg (27.0-31.2); Mean Corpuscular Volume 95.7 fl (80-94); Mean Platelet Volume 10.7 fl (7.4-10.4); Monocytes # 0.6 K/mm3 (0.1-1.0); Monocytes % 3.9 % (1.7-9.3); Neutrophils # 13.3 K/mm3 (1.8-7.8); Neutrophils % 89.7 % (37.0-80.0); Platelet Count 370 K/mm3 (142-424); Red Blood Count 3.48 M/mm3 (4.60-6.20); Red Cell Distribution Width 18.6 % (11.5-17.5); White Blood Count 14.8 K/mm3 (4.8-10.8)
[2022-07-28 07:43] LABS: MANUAL DIFFERENTIAL MANUAL DIFFERENTIAL (MANUAL DIFF)
[2022-07-28 07:44] LABS: Chloride 107 mmol/L (98-107); Potassium 3.8 mmoL/L (3.5-5.1); Sodium 144 mmol/L (136-145)
[2022-07-28 07:47] LABS: Anion Gap 8.8 mEq/L (5-15); Blood Urea Nitrogen 33 mg/dl (9-20); Calcium 8.6 mg/dl (8.4-10.2); Carbon Dioxide 32 mmol/L (22.0-30.0); Creatinine Clearance Estimated 60 mL/min (50-200); Estimated Glomerular Filt Rate 161 ml/min (>60); GFR (African American) 195 ML/MIN (>60); Glucose 260 mg/dl (74-100)
--- NOTE | 2022-07-28 08:00 | PC.NURSE ---
Pt refused breathing treatments and the CPT vest treatment. Pt very agitated and threatened violence if this RT tried to make him put the vest on.
[2022-07-28 08:19] LABS: Anisocytosis 1+; Hypochromasia 1+; Lymphocytes % 3 % (10-50); Macrocytosis 1+; Monocytes % 4 % (2-9); Neutrophils % 93 % (42-76); Total Cells Counted 100
[2022-07-28 08:20] LABS: Ovalocytes 1+; Platelet Estimate Normal
--- NOTE | 2022-07-28 08:24 | PC.NURSE ---
MR ALEXANDRA HAS NOT BEEN RECEPTIVE TO CARE THIS MORNING. HE WOULD NOT ALLOW SRNA TO OBTAIN MORNING VITAL SIGNS AND REFUSED ADMINISTRATION OF MORNING MEDICATIONS. THIS RN ASKED PT IF THERE WAS ANYTHING I COULD DO TO MAKE HIM MORE COMFORTABLE BUT HE STATED THAT HE DID NOT WANT TO BE BOTHERED AND THAT HE WAS DONE . DR ECHEVERRIA WAS MADE AWARE.
--- NOTE | 2022-07-28 09:28 | EXP.PULM.PN ---
Subjective *Date: 07/28/22 *Time: 14:03 Interval history: Denies any new respiratory complaints but complains of generalized fatigue and body aches. Refusing treatments. Pulmonology Exam Inpatient Vital signs and Labs for Last 24 Hours: Temp Pulse Resp BP Pulse Ox 98 F 69 16 98/54 L 95 07/28/22 04:00 07/28/22 04:00 07/28/22 04:00 07/28/22 04:00 07/28/22 04:00 Laboratory Results - last 24 hr 07/27/22 05:44: TSH 2.78 07/27/22 09:50: Troponin I 2.53 H 07/27/22 10:02: Specimen Source Right brachial, O2 % 1l nc, ABG pH 7.48 H, ABG pCO2 44.6, ABG pO2 61.0 L, ABG HCO3 32.4 H, ABG Total CO2 33.8 H, ABG O2 Saturation 91, ABG Base Excess 8.9 H, Kirit Test Acceptable 07/27/22 22:15: Troponin I 1.33 H 07/28/22 06:25: WBC 14.8 H D, RBC 3.48 L, Hgb 10.2 L, Hct 33.3 L, MCV 95.7 H, MCH 29.4, MCHC 30.7 L, RDW 18.6 H, Plt Count 370, MPV 10.7 H, Neut % (Auto) 89.7 H, Lymph % (Auto) 5.4 L, [place] % (Auto) 3.9, Eos % (Auto) 0.6, Baso % (Auto) 0.4, Neut # (Auto) 13.3 H, Lymph # (Auto) 0.8, [place] # (Auto) 0.6, Eos # (Auto) 0.1, Baso # (Auto) 0.1, Total Counted 100, Neutrophils % (Manual) 93 H, Lymphocytes % (Manual) 3 L, Monocytes % (Manual) 4, Platelet Estimate Normal, Hypochromasia 1+, Anisocytosis 1+, Macrocytosis 1+, Ovalocytes 1+ 07/28/22 06:25: Sodium 144, Potassium 3.8, Chloride 107, Carbon Dioxide 32 H, Anion Gap 8.8, BUN 33 H, Creatinine 0.50 L D, Estimated Creat Clear 60, Estimated GFR 161, Est GFR ( Amer) 195 D, Glucose 260 H, Calcium 8.6 I & O for Labs for Last 24 Hours: Intake & Output 07/25/22 07/26/22 07/27/22 07/28/22 23:59 23:59 23:59 23:59 Intake Total 0 / 0 1070 / 1070 Output Total 600 / 600 1 / Balance -600 / -600 1069 / 1069 Weight 153 lb 14.122 oz 153 lb 14.122 oz Microbiology Reports for the Last 24 Hours: Microbiology 07/27/22 11:40 Sputum - Expectorated Sputum Gram Stain - Final Constitutional: Present moderate distress Head: Present normocephalic and atraumatic ENT: Present normal exam and mucous membranes dry; Absent normal oropharynx Neck: Present normal inspection and trachea midline Respiratory: Present prolonged expiratory phase, respiratory distress, rhonchi, wheezes, diminished air movement and able to speak in complete sentences Comment:: Muffled voice Cardiac: Present S1/S2 and Tachycardia GI: Present soft and distention; Absent tenderness or guarding Skin: Present intact; Absent cyanosis or jaundice Neuro: Present alert and awake Extremities: Present normal inspection; Absent clubbing or cyanosis Psychiatric: Present normal affect and cooperative Assessment and Plan *Assessment and plan (1) Aspiration pneumonia: Status: Acute Category: Medical Code(s): J69.0 - Pneumonitis due to inhalation of food and vomit (2) Recurrent pneumonia: Status: Acute Category: Medical Code(s): J18.9 - Pneumonia, unspecified organism (3) Acute and chronic respiratory failure with hypoxia: Status: Acute Category: Medical Code(s): J96.21 - Acute and chronic respiratory failure with hypoxia (4) HAP (hospital-acquired pneumonia): Status: Acute Category: Medical Code(s): J18.9 - Pneumonia, unspecified organism; Y95 - Nosocomial condition Plan 77-year-old male greater than [id number] smoking, 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 Upon talking to the patient's family patient having recurrent episodes of aspiration pneumonia likely in the left lower lobe for the last 2 months, recently had 2 hospital admissions greater than 72 hours status post antibiotic treatments. On 2 L nasal cannula saturating 100%. Hemodynamically stable. Afebrile. leukocytosis at 20 Chest x-ray upon admission he had bilateral patchy airspace disease left greater than right with dense left lower lobe consolidation. CT chest from
--- NOTE | 2022-07-28 09:54 | DIET.NUTRFU ---
Patient is tolerating tubefeeding at 30ml/hr of Nutren 2.0, goal rate is 45ml/hr to meet 100% nutritional needs. Patient declined MBSS for swallowing eval, ice chips is baseline. [employer] encouraged aggressive oral care prior to ice chips. This morning patient is refusing medications and therapy. Cardiac intervention was not recommended at this time d/t PMH and primary care provider will review hospice care and discharge plans back to [place].
--- NOTE | 2022-07-28 12:09 | EXP.CARD.PN ---
Subjective Subjective Date: 07/28/22 Time: 11:00 Principal diagnosis: chest pain, CAD Interval history: This is a 77-year-old white gentleman who was transferred here from [facility] due to a non-STEMI. The patient had been having [facility] at the [facility] when he was transported to [facility] and found to have a non-STEMI. The patient was transferred here to [facility]. He did undergo left cardiac catheterization yesterday and was found to have calcified extensive coronary artery disease in which none of the lesions are appropriate for percutaneous intervention in the patient's current clinical situation. None of the lesions are contributing significantly to the patient's clinical state. This morning he denies any chest pain or pressure. He denies any shortness of breath or edema. He denies any fever or chills. Exam Data for Last 24 hours Vital signs and Labs for Last 24 Hours: Temp Pulse Resp BP Pulse Ox 98 F 80 16 98/54 L 95 07/28/22 04:00 07/28/22 11:10 07/28/22 04:00 07/28/22 04:00 07/28/22 04:00 Laboratory Results - last 24 hr 07/27/22 22:15: Troponin I 1.33 H 07/28/22 06:25: WBC 14.8 H D, RBC 3.48 L, Hgb 10.2 L, Hct 33.3 L, MCV 95.7 H, MCH 29.4, MCHC 30.7 L, RDW 18.6 H, Plt Count 370, MPV 10.7 H, Neut % (Auto) 89.7 H, Lymph % (Auto) 5.4 L, [place] % (Auto) 3.9, Eos % (Auto) 0.6, Baso % (Auto) 0.4, Neut # (Auto) 13.3 H, Lymph # (Auto) 0.8, [place] # (Auto) 0.6, Eos # (Auto) 0.1, Baso # (Auto) 0.1, Total Counted 100, Neutrophils % (Manual) 93 H, Lymphocytes % (Manual) 3 L, Monocytes % (Manual) 4, Platelet Estimate Normal, Hypochromasia 1+, Anisocytosis 1+, Macrocytosis 1+, Ovalocytes 1+ 07/28/22 06:25: Sodium 144, Potassium 3.8, Chloride 107, Carbon Dioxide 32 H, Anion Gap 8.8, BUN 33 H, Creatinine 0.50 L D, Estimated Creat Clear 60, Estimated GFR 161, Est GFR ( Amer) 195 D, Glucose 260 H, Calcium 8.6 I & O for Last 24 hours: Intake & Output 07/25/22 07/26/22 07/27/22 07/28/22 23:59 23:59 23:59 23:59 Intake Total 0 / 0 1070 / 1070 Output Total 600 / 600 Balance -600 / -600 1069 / 1069 Weight 153 lb 14.122 oz 153 lb 14.122 oz Microbiology Reports for the Last 24 Hours: Microbiology 07/27/22 11:40 Sputum - Expectorated Sputum Gram Stain - Final Constitutional Constitutional: no acute distress, thin, cachectic and chronically ill appearing *Routine HEENT Exam Head: Present normocephalic ENT: Present mucous membranes moist and mucous membranes dry *Routine Neck Exam Neck: Present supple, full ROM and normal carotid upstroke; Absent JVD, carotid bruit or lymphadenopathy *Routine Respiratory Exam Respiratory: Present CTA bilaterally, normal respiratory effort, able to speak in complete sentences and symmetric chest movement *Routine Cardiovascular Exam Cardiovascular: Present RRR, Normal S1 and Normal S2; Absent murmur or gallop *Routine Abdominal Exam Abdominal: Present soft and normoactive bowel sounds; Absent tenderness, distended or organomegaly *Routine Extremities Exam Extremities: Present full ROM, pulses intact and normal capillary refill; Absent cyanosis, clubbing or edema *Routine Skin Exam Skin: Present intact and warm; Absent erythema *Routine Neurological Exam Neurological: Present alert, oriented X3 and CN II-XII intact; Absent sensory deficit or motor deficit Routine Psychiatric Exam Psychiatric: Present normal affect Progress Note: A&P Assessment and plan (1) NSTEMI (non-ST elevated myocardial infarction): Status: Acute (2) Aspiration pneumonia: Status: Acute (3) Acute and chronic respiratory failure with hypoxia: Status: Acute (4) HAP (hospital-acquired pneumonia): Status: Acute (5) CAD (coronary artery disease): Status: Chronic (6) Diabetes mellitus: Status: Chronic (7) HTN (hypertension): Status: Chronic (8) HLD (hyperlipidemia): Status: Chronic (9) History
--- NOTE | 2022-07-28 12:57 | CARE MANAGER ---
I spoke with patient and his daughter today, along with Dr. Martinez. Patient and daughter wish for patient to return to [facility] for continued skilled care. Dr. Martinez discussed the possibility of hospice and they would like to think about that vs palliative care for a little bit. Patient is planned for discharge today and Her[facility] ([facility]) notified of patient returning skilled with possibility of changing to palliative in near future. No covid swab needed prior to discharge.
--- NOTE | 2022-07-28 13:00 | PC.NURSE ---
pt refused pcr
--- NOTE | 2022-07-28 14:59 | EXP.DC.SUM ---
General Admission date:: 07/27/22 Discharge date: 07/28/22 HPI HPI HPI: Mr. Berger is a 77-year-old male who transferred from [facility] due to NSTEMI. He is being admitted for observation for recurrent aspiration pneumonia and coronary artery disease. Per records reviewed the patient had a complaint of chest pain at his NH today. Upon arrival to the facility EMS found the patient's oxygen saturation at 85% on room air. In the ER at the [facility], EKG showed NSR with a RBBB, high sensitivity Troponin was elevated at 2600. BNP was elevated at 1050 and BNP was elevated at 1540. The patient underwent a CTA of the chest that showed LLL mucus plugging and recommended bronchoscopy for evaluation. The ER Physician at the [facility] the patient received Lovenox at 1mg/kg, Pantoprazole, Famotidine, Ceftriaxone and Cefepime. The patient will be admitted with initial impression: NSTEMI and Mucus Plugging. Cardiology and Pulmonary will be consulted to see the patient. Hospital Course Hospital Course Hospital Course: The patient is admitted to the medical floor for observation with cardiology and pulmonology consultations. Previous hospitalizations over the last 2 months is noted including PEG placement in [facility] for dysphagia and recurrent aspiration pneumonia. Blood cultures and sputum cultures are acquired and he is started on broad-spectrum IV antibiotic therapy. His chest imaging is concerning for recurrent aspiration. He declined pulmonology recommendations concerning his mucous plugging. With his elevated troponins cardiology performed a left heart cath on July 27, 2022 that identified non interventional disease and recommended medical therapy. His laboratory studies and inflammatory markers were trended. His leukocytosis is improved and his procalcitonin was negative. Nursing staff reported that the patient continued to decline interventions. PT and OT evaluations were declined as well. A goals of care conversation occurred with the patient, daughter at bedside and Rashi DEL VALLE (the patient's nurse) assisting. The patient declined further medical interventions and requested to be discharged back to his facility. We discussed palliative care medicine and hospice and the patient declined at present. His care will be transition back to his [facility] facility for ongoing conversation concerning goals of care. He will be discharged on an extended course of antibiotic therapy for his recurrent aspiration pneumonia. Case management ([facility]) spoke with the patient, his and daughter at bedside on day of discharge to assist with transition of care back to his [facility] facility. Exam Data for Last 24 hours Vital signs and Labs for Last 24 Hours: Temp Pulse Resp BP Pulse Ox 98.3 F 77 18 97/42 L 90 L 07/28/22 12:00 07/28/22 12:42 07/28/22 12:42 07/28/22 12:42 07/28/22 12:00 Laboratory Results - last 24 hr 07/27/22 22:15: Troponin I 1.33 H 07/28/22 06:25: WBC 14.8 H D, RBC 3.48 L, Hgb 10.2 L, Hct 33.3 L, MCV 95.7 H, MCH 29.4, MCHC 30.7 L, RDW 18.6 H, Plt Count 370, MPV 10.7 H, Neut % (Auto) 89.7 H, Lymph % (Auto) 5.4 L, [place] % (Auto) 3.9, Eos % (Auto) 0.6, Baso % (Auto) 0.4, Neut # (Auto) 13.3 H, Lymph # (Auto) 0.8, [place] # (Auto) 0.6, Eos # (Auto) 0.1, Baso # (Auto) 0.1, Total Counted 100, Neutrophils % (Manual) 93 H, Lymphocytes % (Manual) 3 L, Monocytes % (Manual) 4, Platelet Estimate Normal, Hypochromasia 1+, Anisocytosis 1+, Macrocytosis 1+, Ovalocytes 1+ 07/28/22 06:25: Sodium 144, Potassium 3.8, Chloride 107, Carbon Dioxide 32 H, Anion Gap 8.8, BUN 33 H, Creatinine 0.50 L D, Estimated Creat Clear 60, Estimated GFR 161, Est GFR ( Amer) 195 D, Glucose 260 H, Calcium 8.6 I & O for Last 24 hours: Intake & Output 07/25/22 07/26/22 07/27/22 07/28/22 23:59 23:59 23:59 23:59 Intake Total 0 / 0 1070 / 1070 Output Total 600 / 600 1 Balance -600 / -600 1069 /
--- NOTE | 2022-07-31 13:31 | CARE MANAGER ---
Contacted [facility] related to hospital discharge. They state he is doing well. Deny any questions or concerns. ELIGIO Solo
== END 2022-07-28 17:30 ==
PROVIDERS: Family Medicine; Internal Medicine; Internal Medicine Pulmonary Disease; Nurse Practitioner Family; Admitting Provider Internal Medicine Adolescent Medicine; PCP Nurse Practitioner Family; Visit Provider Internal Medicine Adolescent Medicine
DX: I21.4 Non-ST elevation (NSTEMI) myocardial infarction (principal); I25.10 Atherosclerotic heart disease of native coronary artery without angina pectoris; I65.23 Occlusion and stenosis of bilateral carotid arteries; I10 Essential (primary) hypertension; E11.9 Type 2 diabetes mellitus without complications; Z95.5 Presence of coronary angioplasty implant and graft; J69.0 Pneumonitis due to inhalation of food and vomit; E78.5 Hyperlipidemia, unspecified; Y95 Nosocomial condition; Z20.822 Contact with and (suspected) exposure to COVID-19; Z85.850 Personal history of malignant neoplasm of thyroid; J96.21 Acute and chronic respiratory failure with hypoxia
CPT/HCPCS: G0378; G0379; 36415; 71045; 80048; 80053; 80061; 82803; 84145; 84439; 84443; 84484; 85007; 85025; 87040; 87070; 87077; 87205; 92610; 93005; 93306; 93458; 94640; 94667; 94761; 97162; 97165; 99152; C1725; C1769; C9803; J1644; Q9967; U0003; U0005